=== PATIENT | male | born 1940 | race Caucasian/White ===

== ENCOUNTER 2018-11-18 05:23 | Inpatient (IN) | payer OTHER ==
[2018-11-08 12:22] LABS: HEMATOCRIT 45.4 % (42.0-52.0); HEMOGLOBIN 15.6 gm/dL (14.0-18.0); MCH 33.1 pg (26.0-34.0); MCHC 34.2 g/dL (28.0-37.0); MCV 96.8 fL (80.0-100.0); RBC 4.69 mil/uL (4.50-6.00); RDW 12.1 % (10.5-14.5); WBC 7.8 thou/uL (4.0-11.0)
[2018-11-08 12:29] LABS: ALBUMIN 4.1 g/dL (3.4-5.0); CALCIUM 9.2 mg/dL (8.5-10.1); CREATININE 0.9 mg/dL (0.7-1.3); POTASSIUM 4.1 mmol/L (3.5-5.1)
[2018-11-08 12:36] LABS: PROTIME 9.8 Seconds (9.3-11.4)
[2018-11-08 13:30] LABS: URINE BILIRUBIN NEGATIVE (Negative); URINE BLOOD NEGATIVE (Negative); URINE CLARITY CLEAR; URINE COLOR YELLOW; URINE GLUCOSE-RANDOM* NEGATIVE (Negative); URINE KETONES NEGATIVE (Negative); URINE LEUKOCYTES-REFLEX NEGATIVE (Negative); URINE NITRITE-REFLEX NEGATIVE (Negative); URINE PROTEIN (DIPSTICK) NEGATIVE (Negative); URINE SPECIFIC GRAVITY < 1.005 (1.005-1.035); URINE UROBILINOGEN 0.2 E.U./dl (0.2-1.0)
--- NOTE | 2018-11-08 16:51 | EKG ---
[place] [address] [facility] [place] [address] ELECTROCARDIOGRAM REPORT Name: DAE NICHOLAS Room #: [facility]#: [id number] Admission: Attend Phys: Segun Hu MD Discharge: Date of : 40 Report #: [id number] THIS REPORT FOR: //name// [facility] Test Date: 2018-11-08 Test Time: 12:10:21 Pat Name: DAE MEDRANOIS Department: Room: Gender: Mason Foreman/Superintendant: GERRY HORTON : 1940 Requested By: Segun Hu Order Number: [id number] MD: Newton Diaz Measurements Intervals [place] Rate: 69 P: 3 ID: [id number] QRS: -31 QRSD: 96 T: 98 QT: 367 QTc: 393 Interpretive Statements Sinus rhythm Abnormal R-wave progression, late transition Nonspecific ST segment abnormality No previous ECG available for comparison Electronically Signed On 11-08-2018 16:51:25 KITCHEN STEWARD by Newton Diaz [email or web address] <ELECTRONICALLY SIGNED> By: Newton Diaz MD, [facility] 11/08/18 1651 1210 1210 Newton Diaz MD, FACC /EPI
[~2018-11-18] VITALS: Ht 180.3 cm; Wt 86.2 kg
--- NOTE | ~2018-11-18 | O ---
[facility] [place] [address] OPERATIVE REPORT Name: DAE NICHOLAS Room #: 150-3 ADM IN M.R.#: [id number] Admission: 11/18/18 Attend Phys: Segun Hu MD Discharge: Date of : 40 Report #: [id number] THIS REPORT FOR: //name// CC: JENNIFFER GUAN Physician staff Segun Hu DATE OF SERVICE: 11/18/2018 PREOPERATIVE DIAGNOSIS: Left hip osteoarthritis. POSTOPERATIVE DIAGNOSIS: Left hip osteoarthritis. PROCEDURE: Left total hip arthroplasty. SURGEON: Segun Hu MD. MERCHANDISE DISPLAYER: Sonya Meyer PA-C. INDICATIONS FOR MERCHANDISE DISPLAYER: Throughout the case, extensive retraction and manipulation of the hip was required including dislocation and reduction. This was afforded to me by my clerical assistant. ANESTHESIA: General endotracheal. IMPLANTS: [employer] size 14 high offset Synergy press fit stem, a size 56 R3 acetabular cup and a size 40+8 cobalt chrome head. ESTIMATED BLOOD LOSS: 100 mL. COMPLICATIONS: None. SPECIMENS: None. CONDITION UPON LEAVING THE OPERATING ROOM: Stable. INDICATION FOR PROCEDURE: The patient is a 78-year-old gentleman with severe left hip osteoarthritis, had failed conservative treatment for this and after discussion with him, he elected for left total hip arthroplasty. DESCRIPTION OF PROCEDURE: Risks, benefits, alternatives, complications were discussed in detail with the patient including but not limited to risk of anesthesia; risk of damage to nerves, arteries, blood vessels; risk for infection, bleeding; risk for continued hip pain; and need for reoperation. Informed consent was obtained from the patient. Left hip was appropriately marked in the preoperative holding area. IV Ancef was given for preoperative [facility] [address] [place] [address] OPERATIVE REPORT Name: DAE NICHOLAS Baltazar Room #: 150-3 ADM IN ..#: [id number] Admission: 11/18/18 Attend Phys: Segun Hu MD Discharge: Date of : 40 Report #: [id number] antibiotics. He was brought to the operating room and placed in supine position on operating room table. General endotracheal anesthesia was induced without complication. He was placed in the right lateral decubitus position with the left hip uppermost. Left hip and lower extremity were then prepped and draped in normal sterile fashion. Timeout was performed, properly identifying the patient and procedure as well as the instrumentation and implants. All in the operating room were in agreement. Standard posterior approach to the hip was made with 10 blade through the skin. Dissection was taken down to the fascia with Bovie cautery and Lawler elevator was used to clean off the fascia. Fascial incision was made with a 10 blade and this was taken proximally and distally with curved River scissor. Charnley retractor was placed. Trochanteric bursa was taken down with Bovie cautery. Piriformis tendon was identified, tagged and taken down with Bovie. Short external rotators were also taken down with Bovie cautery. Capsulotomy was made and capsule ends were tagged for later repair. The hip was dislocated and there was severe osteoarthritic change of the femoral head. Femoral neck cut was made 1 cm proximal to lesser trochanter based on preoperative templating and the femoral head was removed. Deep acetabular retractors were placed. Labrum was removed sharply. Pulvinar was removed with Bovie cautery. Acetabulum was then sequentially reamed up to a size 56 at which point, there was excellent bleeding cancellous bone. This was trialed with a size 55 shell and found to have a good fit. A final size 56 R3 acetabular cup was placed and seated. One acetabular screw was placed for backup fixation and polyethylene liner for a 40 head was placed. Attention was then turned to the femur. This was reamed and broached up to a size 14, at which point, the size 14 broach was stable. This was trialed with a high offset neck and a 40+0 head. Hip was reduced, taken through range of motion, found to be stable but found to be short on the left compared to the right. It was felt that we could make up for this with the final implant. Hip was dislocated and broach was removed. Final size 14 high offset Synergy press fit stem was placed. This was trialed with a +4 and then a +8 size 40 head. The +8 40 head had the best fit and leg lengths. Hip was dislocated one last time and the trial head was removed. A final size 40+8 cobalt chrome head was placed. Hip was reduced, taken through range of motion, found to be stable, found to have equal leg lengths. The hip was thoroughly irrigated with normal saline. A periarticular injection consisting of morphine, ropivacaine, epinephrine, Toradol was placed around the hip joint capsule. A gram of vancomycin was placed deep in the joint. The capsule and piriformis were repaired with 0 FiberWire. Fascia was closed with 0 Vicryl, skin was closed with 2-0 Vicryl, 3-0 Monocryl. Dermabond and a JULIETTE dressing was applied. The patient tolerated this procedure well and went to recovery room under care of anesthesia postoperatively. By: 0913 [id number] Segun Hu MD /nt
[~2018-11-18 05:23] MED LIST: A-F BETAFOOD PO; CARDIO-PLUS PO; CATAPLEX PO; EXCEDRIN CAPLE1 EACH PO; GLUCOSAMINE PO; GLUCOSAMINE1000 MG PO; IBUPROFEN 200200 M1 PO; LOSARTAN POTASS50 MG PO; MULTIZYME PORT; PROSYNBIOTIC PO; TURMERIC FORTE PO; TYLENOL EXTRA500 MG PO; [UNRECOGNIZED DRUG - CODE] PO; [UNRECOGNIZED DRUG - OTHER] PO; [UNRECOGNIZED DRUG - OTHER] PO; [UNRECOGNIZED DRUG - OTHER] PO
[2018-11-18 07:38] VITALS: BP 181/89
--- NOTE | 2018-11-18 13:06 | NUR ---
PT RECEIVED FROM REC AT 1030 ALERT AND IN NO ACUTE DISTRESS. PT STATES NO PAIN OR NAUSEA. DRINKING WATER AND ATE SNACK BEFORE LUNCH ARRIVED. LT HIP JULIETTE DSNG INTACT. NO DRAINAGE NOTED ON DSNG. IV FLUIDS INFUSING. PT TRYING TO VOID PER URINAL BUT HAVING SM AMTS URINE-WAITING TO STAND W/ THERAPY THIS AFTERNOON.
--- NOTE | 2018-11-18 15:29 | NUR ---
INITIAL ASSESSMENT: Pt evaluated for d/c planning needs. Reviewed chart and spoke with nurse, pt, spouse and son. Pt is alert and oriented. Pt lives in house with spouse and was independent with ADL's prior to admission to the hospital. Pt has no DME and has not had home health in the past. Pt has scheduled outpatient PT to begin on Thursday. Ordered walker from [employer] to be delivered to pt prior to d/c. Will remain available to assist as needed.
--- NOTE | 2018-11-18 18:30 | NUR ---
PT HAS DONE WELL POSTOP W/ HIP. HAS HAD SOME URINARY RETENTION. BLADDER SCANNED >999. STR CATHED 1000MLS. PT HAS BEEN ABLE TO VOID SEVERAL TIMES SMALL AMTS W/ URINAL IN PLACE. STATES HIS STATED HE HAD ENLARGED PROSTATE. HE GETS UP SEVERAL TIMES DURING THE NOC TO VOID. INSTRUCTED PT TO CALL AFTER USING THE URINAL THE NEXT TIME AND WE WILL SCAN AT THE TIME.
[2018-11-18 20:09] VITALS: BP 159/89
[2018-11-19 00:17] VITALS: BP 155/83
--- NOTE | 2018-11-19 04:04 | NUR ---
ASSUMED PT CARE 1900. PT ALERT AND ORIENTED. VSS. BP SLIGHTLY ELEVATED. IV DRESSING C/D/I, NO SIGNS OF INFILTRATION. PT REPORTS MINIMAL URINATION ALTHOUGH FEELING NEED TO URINATE, BLADDER SCAN POST VOID SHOW 780. CONTACTED BARREL REPAIRER, ORDERS TO INSERT RANDOLPH. RANDOLPH IN PLACE 700 OUT IMMIDEATELY. PT TOLERATED PROCEDURE WELL. PT TOLERATING FULL DIET WELL. REASSESSMENT COMPLETED. PT DENIES NAUSEA AT THIS TIME. PT DENIES PAIN. JULIETTE DRESSING C/D/I. PT DENIES PAIN AT THIS TIME. POST OP TEACHINGS REINFORCED. PT CALL LIGHT AND PERSONAL BELONGINGS WITHIN REACH. WILL CONTINUE POC UNTIL EOS.
[2018-11-19 04:23] LABS: HEMATOCRIT 33.6 % (42.0-52.0); HEMOGLOBIN 11.8 gm/dL (14.0-18.0); MCH 33.5 pg (26.0-34.0); MCV 95.8 fL (80.0-100.0); RBC 3.51 mil/uL (4.50-6.00); WBC 10.3 thou/uL (4.0-11.0)
[2018-11-19 04:30] VITALS: BP 150/69
[2018-11-19] MEDS ORDERED: NEURONTIN 300300 M1 PO (14:34)
[2018-11-19] MEDS ORDERED: TRI-BUFFERED A325 M1 PO (14:34)
[2018-11-19 14:45] VITALS: BP 150/69
--- NOTE | 2018-11-19 20:13 | NUR ---
ASSUMED CARE OF PT AT 0700. ASSESSMENT COMPLETED. C/O LEFT HIP PAIN, PAIN MEDS GIVEN ORDERED. STATES WELL TOLERATED PAIN. X1 ASSIST WITH WALKER. PT STATES SAFE TO GO HOME. DR. BOSTON NOTIFIED. NEW DISCHARGE ORDERS. RANDOLPH CATHETER REMOVED PER PROTOCOL, 1600 URINE OUTPUT NOTED. IV REMOVED, NO BLEEDING. SCRIPTS AND CARENOTES GIVEN TO PT. FAMILY AT BEDSIDE. PT LEFT IN STABLE CONDITION VIA WHEELCHAIR.
== END 2018-11-19 16:56 | disposition home or self-care (01) | DRG 470 ==
LOC: PRE 05:23 → 4E 05:43 → TBA 05:43 → PRE 09:32 → 4E 11:57 → PRE 14:36 → ENTRNSPT 11-19 15:45 → EDTRNSPTSTS 11-19 15:46 → 4E 11-19 16:56
PROVIDERS: ADMIT Orthopaedic Surgery
PROC: 0SRB01A Replacement of Left Hip Joint with Metal Synthetic Substitute, Uncemented, Open Approach (ICD-10-PCS; principal; 2018-11-18)
DX: M16.12 Unilateral primary osteoarthritis, left hip (principal); I10 Essential (primary) hypertension; Z79.82 Long term (current) use of aspirin; Z79.899 Other long term (current) drug therapy
CPT/HCPCS: 10783; 50010; 50101; 50382; 50414; 53000; 53078; 53367; 54118; 56524; 56527; 56528; 56530; 57095; 57103; 62110; 62900; 70005